=== PATIENT | male | born 1995 | race Caucasian/White ===

== ENCOUNTER 2018-08-21 12:16 | Emergency (ER) | payer OTHER ==
[~2018-08-21] VITALS: Ht 198.1 cm; Wt 117.9 kg
--- NOTE | 2018-08-21 12:16 | NUR ---
Pt ambulatory to room 2a, stat EKG done and handed to Dr. Jeffers.
[2018-08-21 12:48] LABS: BASOPHILS % (AUTO) 0.7 % (0.0-2.0); EOSINOPHILS # (AUTO) 0.2 K/uL (0.0-0.7); EOSINOPHILS % (AUTO) 2.4 % (0.0-7.0); HEMATOCRIT 50.4 % (36.7-47.1); HEMOGLOBIN 17.2 g/dL (12.5-16.3); LYMPHOCYTES # (AUTO) 1.6 K/uL (20.0-40.0); LYMPHOCYTES % (AUTO) 24.2 % (20.5-51.5); MEAN CORPUSCULAR HEMOGLOBIN 31.3 uug (23.8-33.4); MEAN CORPUSCULAR HGB CONC 34 g/dL (32.5-36.3); MEAN CORPUSCULAR VOLUME 91.3 fL (73.0-96.2); MONOCYTES # (AUTO) 0.6 K/uL (2.0-10.0); MONOCYTES % (AUTO) 9.6 % (0.0-11.0); NEUTROPHILS # (AUTO) 4.3 K/uL (1.8-8.9); NEUTROPHILS % (AUTO) 63.1 % (38.5-71.5); PLATELET COUNT (AUTO) 167 K/uL (152-348); RED BLOOD CELL COUNT(AUTO) 5.52 MIL/uL (4.06-5.63); WHITE BLOOD COUNT (AUTO) 6.7 K/uL (3.6-10.2)
[2018-08-21 12:53] LABS: CREATININE 1.3 mg/dL (0.6-1.3)
[2018-08-21] MEDS ORDERED: IBUPROFEN 600 MG TABLET PO ONE (13:15)
[2018-08-21] MEDS ORDERED: IBUPROFEN 600 MG TABLET ONE (13:19)
[2018-08-21 13:21] VITALS: BP 140/76
== END 2018-08-21 13:30 | disposition home or self-care (01) ==
LOC: ER 12:16
DX: R07.89 Other chest pain (principal)
CPT/HCPCS: 36415; 70030-TC; 71045; 85025; 93005; A4663